=== PATIENT | female | born 1975 | race Caucasian/White ===

== ENCOUNTER 2025-01-27 09:36 | Outpatient (REF) | payer MEDICAID, SELFPAY ==
[2025-01-27 11:52] LABS: Beta-Hydroxybutyrate 0.17 mmol/L (0.02-0.27)
[2025-01-27 11:53] LABS: Anion Gap 11 (12-20); Blood Urea Nitrogen 11 mg/dL (9-16); Calcium 8.4 mg/dL (8.4-10.2); Carbon Dioxide 24 mmol/L (22-29); Chloride 108 mmol/L (96-108); Estimated Glomerular Filt Rate > 60; Glucose Random 106 mg/dL (60-115); Magnesium 1.8 mg/dL (1.6-2.6); Potassium 3.6 mmol/L (3.3-5.1); Sodium 139 mmol/L (135-145)
== END 2025-01-27 09:37 | disposition home or self-care (01) ==
LOC: HO.HHCL 09:36
PROVIDERS: Visit Provider Internal Medicine
DX: K52.9 Noninfective gastroenteritis and colitis, unspecified (principal); E11.9 Type 2 diabetes mellitus without complications
CPT/HCPCS: 36415; 80048; 82010; 83735

== ENCOUNTER 2025-06-04 09:06 | Emergency (ER) | payer MEDICAID, SELFPAY ==
--- OUTSIDE RECORDS SUMMARY | 2024-08-25 05:20 | XMS_ITS ---
Author Organization [employer] enter Address [address] [place] [phone] Care Team Providers Care Honey Blender Name Role Phone Fito Garza MD Primary Care Provider Adelfo MONTGOMERY, Maya Unavailable [phone] REASON FOR VISIT ride needed to[facility] Encounters Encounter Location Date Provider Diagnosis [facility] Medical [address] [id number] 08/25/2024 Maya Emanuel Plan Of Treatment No Information Progress Notes * LUISITOMikaelaOB:[birth year] (49 yo F)Acc No.[id number]:08/25/2024 PROGRESS NOTES Patient: Madhu INMAN Provider: Marcia Emanuel MD Resource:Transportation, [facility] :1975 A ge:48 Y S ex:Female Date:08/25/2024 Address:[address] [place] [address], [address] [id number] Pcp:Fito Garza MD Subjective: * Chief Complaints: [...] 08/25/2024 Generated for Samantha sanders/Lisette/Denise on: 1 08/04/2024 09:42 AM EST
--- OUTSIDE RECORDS SUMMARY | 2024-09-27 05:40 | XMS_ITS ---
Author Organization [employer] enter Address [address] [place] [phone] Care Team Providers Care Camera Technician Name Role Phone Fito Garza MD Primary Care Provider [phone] REASON FOR VISIT Follow-Up/Recheck- CXL by facility Encounters Encounter Location Date Provider Diagnosis [facility] Medical of [address] [id number] 09/27/2024 Fito Garza Plan Of Treatment No Information Progress Notes * LUISITOEdilbertoHunterOB:[birth year] (49 yo F)Acc No.[id number]:09/27/2024 PROGRESS NOTES Patient: Madhu INMAN Provider: Enmanuel Garza MD :1975 A ge:48 Y S ex:Female Date:09/27/2024 Address:[address] [place] [address], [address], [id number] Subjective: * Chief Complaints: * 1 . Follow-Up/Recheck- CXL by facility. * Medical History: Objective: * Vitals: * Physical Examination: Assessment: Plan: * Treatment: * Billing Information: * Visit Code: * Procedure Codes: * The named appointment provid er may or may not be the originator of this progress note, and it is not deemed complete until electronically signed by the appointment provider. Sign off status: Pending * Provider: Enmanuel Garza MD Date: 0 09/27/2024 Generated for Samantha sanders/Lisette/eTransmitting on: 1 08/04/2024 09:42 AM EST
--- OUTSIDE RECORDS SUMMARY | 2024-10-27 03:00 | XMS_ITS ---
Author Organization [employer] enter Address [address] [place] [phone] Care Team Providers Care School Health Assistant Name Role Phone Fito Garza MD Primary Care Provider REASON FOR VISIT Back Pain Encounters Encounter Location Date Provider Diagnosis [facility] Medical [place] [address] [place] [phone] 10/27/2024 Fito Garza Plan Of Treatment No Information Progress Notes * LUISITO MikaelaOB:[birth year] (49 yo F)Acc No.[id number]:10/27/2024 PROGRESS NOTES Patient: Madhu INMAN Provider: Enmanuel Garza MD :1975 A ge:48 Y S ex:Female Date:10/27/2024 Address:[address] [place] [address], [address], [id number] Subjective: * Chief Complaints: * 1 . [...] 0 10/27/2024 Generated for Samantha sanders/Lisette/eTransmitting on: 1 08/04/2024 09:42 AM EST
--- OUTSIDE RECORDS SUMMARY | 2024-12-15 03:40 | XMS_ITS ---
Author Organization [employer] enter Address [address] [place] [phone] Care Team Providers Care Artificial Stone Setter Name Role Phone Fito Garza MD Primary Care Provider [phone] REASON FOR VISIT Back Pain Encounters Encounter Location Date Provider Diagnosis [address] [id number] 12/15/2024 Fito Garza Plan Of Treatment No Information Progress Notes * LUISITOMikaelaOB:[birth year] (49 yo F)Acc No.[id number]:12/15/2024 PROGRESS NOTES Patient: Madhu INMAN Provider: Enmanuel Garza MD :1975 A ge:49 Y S ex:Female Date:12/15/2024 Address:[address] [place] [address], [address], [id number] Subjective: * Chief Complaints: * 1 . [...] 0 12/15/2024 Generated for Samantha sanders/Lisette/eTransmitting on: 08/04/2024 09:42 AM EST
--- OUTSIDE RECORDS SUMMARY | 2025-04-13 03:00 | XMS_ITS ---
Author Organization [employer] enter Address [address], [place] [phone] Care Team Providers Care Quality Control Industrial Engineer Name Role Phone Fito Garza MD Primary Care Provider REASON FOR VISIT [phone] support animal Medications Medication SIG (Take, Route, Frequency, Duration) Notes Start Date End Date Status BuPROPion (Eqv-Wellbutrin SR) 150 mg/12 hours 1 tab(s) orally 2 times a day; Duration: 30 day(s) 04/19/2024 Active HydrOXYzine Hydrochloride hydrochloride 25 mg 1 tab(s) orally 4 times a day prn anxiety; Duration: 90 days Rx Written By: Fito Garza Rx Sent By: eTri Bojorquez CphT Active metoclopramide 10 mg 1 tab(s) orally up to 4 times a day as needed for nausea/vomiting; Duration: 3 days As needed 09/13/2024 Active Rosuvastatin Calcium 10 mg 1 tab(s) orally once a day; Duration: 30 days Written rx given by provider, Rx sent by Viet Cavanaugh Active dapagliflozin 10 mg 1 tab(s) orally once a day; Duration: 30 days Written rx given by provider, Rx sent by Viet Zepeda Active famotidine 20 mg 1 tab(s) orally 2 times a day; Duration: 30 days 08/25/2024 Active benzonatate 100 mg 1 cap(s) orally 3 times a day; Duration: 5 day(s) 08/25/2024 Active Cyclobenzaprine Hydrochloride 10 mg 1 tab(s) orally 3 times a day PRN 03/14/2024 Active omeprazole 20 mg 1 cap(s) orally once a day; Duration: 90 days Written rx given by provider, Rx sent by Viet Cavanaugh Active OZEMPIC (0.25mg or 0.5mg dose) 2 mg/3 mL Inject 0.25mg subcutaneously once weekly; Duration: 28 days Written rx given by provider, Rx sent by Vinh Do CPhT 09/05/2024 Active ondansetron 4 mg 1 tab(s) orally ever y 8 hours as needed; Duration: 7 days Active Lancets Select per formulary as directed subcutaneously Once Daily. DX E11.9; Duration: 90 days Written Rx given by provider Rx sent by Vinh Do CPhT Active Diabetic Meter Select per formulary As directed for blood glucose testing Subcutaneously Once Daily. DX E11.9; Duration: 30 day(s) Written Rx given by provider Rx sent by Vinh Do CPhT Active TraZODone Hydrochloride 50 mg 1 tab(s) orally at bedtime prn insomnia; Duration: 30 days Active Lancing Device select per formulary as directed subcutaneously Once Daily DX E11.9; Duration: 30 day(s) 04/19/2024 Active Alcohol Prep Pads _ as directed topicall y Once Daily. DX E11.9; Duration: 30 day(s) 04/19/2024 Active sucralfate 1 g 1 tab(s) orally 4 times a day (before meals and at bedtime) Donna 05/20 Active fexofenadine 180 mg 1 tab(s) orally once a day Active Montelukast Sodium 10 mg 1 tab(s) orally once a day; Duration: 30 days 07/14/2024 Active Test Strips Select per formulary as directed to check blood glucose level Subcutaneously Once daily DX E11.9; Duration: 30 day(s) 04/19/2024 Active Encounters Encounter Location Date Provider Diagnosis [address] [id number] 04/13/2025 Fito Garza Plan Of Treatment No Information Progress Notes * Mikaela JORGEOB:[birth year] (49 yo F)Acc No.[id number]:04/13/2025 PROGRESS NOTES Patient: Madhu INMAN Provider: Enmanuel Garza MD :1975 A ge:49 Y S ex:Female Date:04/13/2025 Address:[address] [place] [address], [address], [place] Subjective: * Chief Complaints: * 1 . [phone]- letter support animal. * HPI: T elemedicine: Phone Visit Consent V erbal consent obtained from patient/guardian: Y es. P roalonso's visit location : o n site. [facility]. S ervice Time: Start Time : _. E nd Time : _. D uration (in minutes) : _. * Medical History: * Medications: T aking Montelukast Sodium 10 mg tablet 1 tab(s) orally once a day , Taking fexofenadine 180 mg tablet 1 tab(s) orally once a day , Taking sucralfate 1 g tablet 1 tab(s) orally 4 times a day (before meals and at bedtime) , Notes to Pharmacist: Donna 05/20, Taking Alcohol Prep Pads _ swab as directed topically Once Daily. DX E11.9 , Taking Test Strips Select per formulary _ as directed to check blood glucose level Subcutaneously Once daily DX E11.9 , Taking Lancing Device select per formulary _ as directed subcutaneously Once Daily DX E11.9 , Taking TraZODone Hydrochloride 50 mg tablet 1 tab(s) orally at bedtime prn insomnia , Taking Diabetic Meter Select per formulary Glucometer As directed for blood glucose testing Subcutaneously Once Daily. DX E11.9 , Notes to Pharmacist: Written Rx given by provider Rx sent by Vinh Do CPhT, Taking Lancets Select per formulary _ as directed subcutaneously Once Daily. DX E11.9 , Notes to Pharmacist: Written Rx given by provider Rx sent by Vinh Do CPhT, Taking ondansetron 4 mg tablet 1 tab(s) orally every 8 hours as needed , Taking omeprazole 20 mg delayed release capsule 1 cap(s) orally once a day , Notes to Pharmacist: Written rx given by provider, Rx sent by Viet Cavanaugh, Taking Cyclobenzaprine Hydrochloride 10 mg tablet 1 tab(s) orally 3 times a day PRN , Taking benzonatate 100 mg capsule 1 cap(s) orally 3 times a day , Taking famotidine 20 mg tablet 1 tab(s) orally 2 times a day , Taking OZEMPIC (0.25mg or 0.5mg dose) 2 mg/3 mL solution Inject 0.25mg subcutaneously once weekly , Notes to Pharmacist: Written rx given by provider, Rx sent by Vinh Do CPhT, Taking dapagliflozin 10 mg tablet 1 tab(s) orally once a day , Notes to Pharmacist: Written rx given by provider, Rx sent by Viet Zepeda, Taking Rosuvastatin Calcium 10 mg tablet 1 tab(s) orally once a day , Notes to Pharmacist: Written rx given by provider, Rx sent by Viet Cavanaugh, Taking metoclopramide 10 mg tablet 1 tab(s) orally up to 4 times a day as needed for nausea/vomiting As needed, Taking HydrOXYzine Hydrochloride hydrochloride 25 mg tablet 1 tab(s) orally 4 times a day prn anxiety , Notes to Pharmacist: Rx Written By: Fito Garza Rx Sent By: Teri Bojorquez CphT, Taking BuPROPion (Eqv-Wellbutrin SR) 150 mg/12 hours tablet, extended release 1 tab(s) orally 2 times a day Objective: * Vitals: * Physical Examination: Assessment: Plan: * Treatment: * Procedure Codes: P HPRO Phone Visit-PROVIDER * Billing Information: * Visit Code: * Procedure Codes: PHPRO Phone Visit-PROVIDER. * The named appointment provid er may or may not be the originator of this progress note, and it is not deemed complete until electronically signed by the appointment provider. Sign off status: Pending * Provider: Enmanuel Garza MD Date: 0 04/13/2025 Generated for Samantha sanders/Lisette/Denise on: 08/04/2024 09:42 AM EST History and Physical Notes * HPI (History of Present Illness) Category Sub-Category Detail Notes Category Not es Service Time Start Time : _ End Time : _ Duration (in minutes) : _ Telemedicine Phone Visit Consent Verbal conse nt obtained from patient/guardian:: Yes Provider's visit location :: on site Patient's visit location :: off site
[2025-06-04 09:11] VITALS: BP 127/67; PULSE 75; RESP 16; TEMP 36.7; O2SAT 96; BMI 31.6
--- OUTSIDE RECORDS SUMMARY | 2025-06-04 09:42 | XMS_ITS | Clinical Summary ---
Author Organization [employer] Address [address] [facility] [address] [place] [address] Care Team Providers Care Bilingual Call Center Representative Name Role Phone Unavailable Primary Care Provider Unavailabl e Allergies Active Allergy Reactions Criticality Noted Date Comments Penicillin G Hives High 01/25/2025 Medications * This document contains information received from the source organization and may not represent a complete record from that organization. Ozempic, 0.25 or 0.5 MG/DOSE, 2 MG/3ML solution pen-injector Inject 0.25 mg under the skin 1 (one) time per week. 11/21/2024 Active hydrOXYzine HCl (Atarax) 25 MG tablet Take 25 mg by mouth Once per day. Active Active Problems Problem Noted Date Diagnosed Date Gastroenteritis 01/25/2025 Assessment & Plan (01/25/2025 7:44 PM EDT): Probably viral, getting worse by use of Ozempic yesterday. Patient is currently hemodynamically stable, her mucosas are moist and does not show any other signs of dehydration or orthostatism. Start Zofran 3 times daily AC meals and I advised to start p.o. hydration (water, Pedialyte, Gatorade, Crystal light, chicken broth or herbal teas) for the next 4 to 5 hours then advance to BRAT diet as tolerated. Continue Zofran tomorrow morning, hydration and above diet, advance to soft diet (information given to patient) as tolerated. Check BMP and ketones tomorrow after hydration, should go to ED tonight if she continues with weakness, severe headache, uncontrolled vomiting or episode of hypoglycemia. Continue Ozempic next week only if she has been without symptoms for at least 3 days and follow-up with new PCP Type 2 diabetes mellitus wit hout complication, without long-term current use of insulin 01/25/2025 Assessment & Plan (01/25/2025 7:41 PM EDT): A1c is at goal, needs to follow-up with new PCP. Should be without symptoms for at least 3 days in order to continue Ozempic next week, otherwise she will hold off until the following week. Body aches 01/25/2025 Recurrent major depressive disorder, in partial remission 01/25/2025 Assessment & Plan (01/25/2025 7:47 PM EDT): On hydroxyzine in the morning only. She agreed to be referred to behavioral health to continue follow-up by counselor. Please follow-up with your PCP Patient feels safe at home and is able to reach out for safety Encounters Date Type Department Care Team Description 04/05/2025 Population Health Risk Score [facility] () Department [address] [place] [phone] Provider, Population Health Generic 03/21/2025 Telephone [facility] [address] [place] [address] Yandy Joseph MD No Show 03/20/2025 Telephone [facility] [address], [place] [phone] Yandy Joseph MD chart prep 03/14/2025 Patient Outreach [facility] [address] [place] [address] Yandy Joseph MD Pre-visit Planning (AKOH unable to reach, Disconnected) from Last 3 Months Social History Tobacco Use Types Packs/Day Years Used Date Smoking Tobacco: Never Assessed Depression Answer Date Recorded Patient Health Questionnaire-9 Score 4 01/25/2025 Patient Health Questionnaire-9 Score 4 01/25/2025 Last PHQ-9: Questionnaire Data Not on file 0 01/25/2025 Depression Answer Date Recorded Patient Health Questionnaire-2 Score 1 01/25/2025 Comments Unknown Sex and Gender Information Value Date Recorded Sex Assigned at Female 01/25/2025 5:15 PM EDT Legal Sex Female 11:33 AM EDT Gender Identity Female 01/25/2025 5:15 PM EDT Sexual Orientation Straight 01/25/2025 5: 15 PM EDT Last Filed Vital Signs Vital Sign Reading Time Taken Comments Blood Pressure 131/86 01/25/2025 6:24 PM EDT Pulse 76 01/25/2025 6:24 PM EDT Temperature 36.7 C (98.1 F) 01/25/2025 6:24 PM EDT Respiratory Rate 16 01/25/2025 6:24 PM EDT Oxygen Saturation 96% 01/25/2025 6:24 PM EDT Inhaled Oxygen Concentration - - Weight 90.4 kg (199 lb 3.2 oz) 01/25/2025 6:24 P M EDT Height 167.6 cm (5' 6 ) 01/25/2025 6:24 PM EDT Body Mass Index 32.15 01/25/2025 6:24 PM EDT Plan of Treatment Health Maintenance Due Date Last Done Comments CT Colonography 1975 Colonoscopy 1975 Colorectal Cancer Screening 1975 FIT DNA/Cologuard 1975 FIT 1975 FOBT 1975 HIV Screening 1975 Lipid Panel 1975 SDOH Screening 1975 Sigmoidoscopy 1975 Disability Screening 1975 Diabetes: Foot Exam 1986 Eye Exam 1986 Alcohol/Substance Use Screening 1988 Tobacco Screening 1988 Family Planning (PISQ) 12/11/1991 Hepatitis C Screening 1994 DTaP/Tdap/Td Vaccines (1 - Tdap) 12/11/1995 Diabetes: Urine Protein Screening 12/11/1995 Hepatitis B Vaccines (1 of 3 - 19+ 3-dose series) 12/11/1995 Pneumococcal Vaccine: Pediatrics (0 to 5 Years) and At-Risk Patients (6 to 49) Years (1 of 2 - PCV) 12/11/1995 Pap Smear 1997 Cervical Cancer Screening 2006 HPV/Cotest 2006 Mammogram 2016 COVID-19 Vaccine (1 - 2023-2 5 season) 2025 Influenza Vaccine (#1) 2025 Diabetes: Hemoglobin A1C 07/27/2025 01/25/2025 Depression Screening 01/25/2026 01/25/2025, 01/25/2025 Zoster Vaccines (1 of 2) 2026 RSV Patients and Patients Aged 60 years or older (1 - 1-dose 75+ series) 12/11/2051 HIB Vaccines Aged Out No longer eligi ble based on patient's age to complete this topic HPV Vaccines Aged Out No longer eligi ble based on patient's age to complete this topic Hepatitis A Vaccines Aged Out No long er eligible based on patient's age to complete this topic IPV Vaccines Aged Out No longer eligi ble based on patient's age to complete this topic Meningococcal B Vaccine Aged Out No l onger eligible based on patient's age to complete this topic Meningococcal Vaccine Aged Out No roula sandy eligible based on patient's age to complete this topic RSV under 20 months Aged Out No longe r eligible based on patient's age to complete this topic Rotavirus Vaccines Aged Out No longer eligible based on patient's age to complete this topic Procedures Procedure Name Priority Date/Time Associated Diagnosis Comments POCT GLYCATED HEMOGLOBIN, TOTAL Routine 01/25/2025 6:47 PM EDT Type 2 diabetes mellitus without complication, without long-term current use of insulin ([facility]) from Last 3 Months or Most Recently Relevant to Health Maintenance Results * (ABNORMAL) POCT HGB A1C (01/25/2025 6:47 PM EDT) Hemoglobin A1C 6.6(A) 4.0 - 6.0 % QC Media Lot # [id number] Lot# Expiration Date Blood 01/25/2025 6:47 PM EDT Yandy Joseph MD POINT OF CARE TEST ENTER /EDIT ORDERABLES Final Result from Last 3 Months or Most Recently Relevant to Health Maintenance Insurance [facility] C3
--- OUTSIDE RECORDS SUMMARY | 2025-06-04 09:43 | XMS_ITS | Patient Health Record ---
Author Organization [employer] Address [address], [place] [address] Care Team Providers Care Welding Pantograph Operator Name Role Phone Fito Garza MD Primary Care Provider [phone] Adelfo MONTGOMERY, Maya Unavailable [phone] Christiano DEBUBBLIZER-C, Hemalatha Unavailable [phone] Carin SUPERVISOR [employer]-C, Avani Unavailable Chucky SUPERVISOR [employer]-C, Hali Unavailable [phone] Sierra Sanders APRN Unavailable Elle Tinsley DO Unavailable [phone] Krishan Mckeon MD Unavailable [phone] Allergies Allergen (clinical drug ingredient) Drug/Non Drug Allergy documented on EMR Reaction Allergy Type Onset Date Status Shellfish Hives Drug Allergy Active cephalexin cephalexin Anaphylaxis Drug Allergy Act krystle amoxicillin amoxicillin hives Drug Allergy Act krystle Results Component Value Reference Range Notes HbA1C (IH) Reviewed date:06/21/2024 05:12:02 PM Interpretation:6.5 Performing Lab: Notes/Report: 6.5 HEMOGLOBIN A1C 6.5 (4.3 - 5.6) % Glucose (IH) Reviewed date:06/21/2024 05:12:22 PM Interpretation:137 Performing Lab: Notes/Report: 137 GLU 137 67 - 99 mg/dl Strep A Rapid (IH) * Reviewed date:06/21/2024 05:11:49 PM Interpretation:Positive Performing Lab: Notes/Report: Positive RAPID STREP Positive (Negative) - COVID-19 / Influenza A + B R apid BD Veritor (IH) (Z20.828) Reviewed date:06/21/2024 05:12:13 PM Interpretation:Negative Performing Lab: Notes/Report: Negative SARS-CoV-2 Ag neg (Negative) - Influenza A neg (Negative) - Influenza B neg (Negative) - HEPATITIS C ANTIBODY Reviewed date:08/17/2024 05:10:37 AM Interpretation: Performing Lab:[facility] [address] [facility] [id number] Notes/Report: Hepatitis C Virus Antibody Non Reac Non Reactive Urine Gonorrhoea Probe (Life span) Reviewed date:08/17/2024 03:27:46 PM Interpretation: Performing Lab:[facility] [address] [facility] [id number] Notes/Report: Urine Gonorrhoeae Probe negative Urine Juni Probe performed by Footnote Test Performed by: [facility] [address] [address] LIPID PANEL (aka Cholesterol Fractionation) Reviewed date:08/17/2024 05:10:37 AM Interpretation: Performing Lab:[facility] [address] [facility] [address] Notes/Report: Hours Fasting Unknown Cholesterol Level 225 110-199 MG/DL TOTAL CHOLESTEROL Desirable: <200 mg/dL Borderline high: 200-239 mg/dL High: > or =240 mg/dL Triglycerides 224 37-141 MG/DL TRIGLYCERIDES Normal: <150 mg/dL Borderline high: 150-199 mg/dL High: 200-499 mg/dL Very high: > or =500 mg/dL HDL 51 50-70 MG/DL LDL 129 70-129 MG/DL LDL CHOLESTEROL Desirable (ASCVD or Diabetes): <70 mg/dL Desirable: <100 mg/dL Borderline: 130-159 mg/dL High: 160-189 mg/dL Very high: > or =190 mg/dL Non-HDL Cholesterol 174 70-159 MG/DL NON-HDL CHOLESTEROL Desirable (ASCVD or Diabetes): <100 mg/dL Desirable: <130 mg/dL Borderline: 160-189 mg/dL High: 190-219 Very high: > or =220 mg/dL Chol HDL Ratio 4.4 2.0-5.0 Urine Chlamydia trac Probe Reviewed date:08/17/2024 03:27:46 PM Interpretation: Performing Lab:[facility] [address] [facility] / Notes/Report: Urine Chlamydia Probe negative Urine Chlamydia Probe performed by Footnote Test Performed by: [facility] [address] [address] Comprehensive Metabolic Pane l Reviewed date:09/14/2024 08:36:02 AM Interpretation: Performing Lab:[facility] [address] [facility] / Notes/Report: Glucose 116 67-99 MG/DL BUN 8 6-24 MG/DL Creatinine 0.76 0.44-1.03 MG/DL eGFR 97 >90 mL/min/1.73m exp2 Calcul ated using the CKD-epi 2020 race-free equation. BUN Creatinine Ratio 11 NA 142 135-145 MEQ/L K Level 3.4 3.6-5.1 MEQ/L Chloride 108 98-110 MEQ/L CO2 26 20-29 MEQ/L Anion Gap 8 3-13 Albumin 4.3 3.4-5.1 G/DL Alkaline Phosphatase 84 39-117 IU/L ALT 9 7-49 IU/L AST 10 12-52 IU/L Bili Total 0.3 0.1-1.2 MG/DL CA 9.5 8.4-10.2 MG/DL Total Protein 7.7 6.1-8.3 G/DL HIV Ab/Ag Combo Reviewed date:08/17/2024 05:10:37 AM Interpretation: Performing Lab:[facility] [employer] [address] [facility] / Notes/Report: HIV Ab/Ag Combo Non Reac Treponema pallidum IgG and I gM Antibody Reviewed date:08/17/2024 05:10:37 AM Interpretation: Performing Lab:[facility] [employer] [address] [facility] / Notes/Report: Treponema pallidum IgG IgM Antibody <0.2 0.0-0.8 AI Treponema IgG IgM Comnt Footnote Reference Range Antibody Index (AI) Negative: < or = 0.8 No Syphilis IgG/IgM antibodies detected. Patient is presumed not to have had syphilis infection. Equivocal: 0.9 - 1.0 Equivocal result: Reflex to RPR test Positive: = or > 1.1 Reactive: Reflex to RPR test Allergens, Mold Profile Reviewed date:08/18/2024 07:52:39 AM Interpretation: Performing Lab:[facility] [address] [facility] / Notes/Report: Allergen, A. alternata IgE <0.10 <=0.34 kU/L Allergen, A. fumigatus IgE <0.10 <=0.34 kU/L Allergen, C. albicans <0.10 <=0.34 kU/L Allergen, Hormodendrum <0.10 <=0.34 kU/L Allergen, P. notatum IgE <0.10 <=0.34 kU/L RAST, Immunocap Score See Note REFERENCE INTERVAL: Allergen, Interpretation Less than 0.10 kU/L......Class 0.....No significant level detected 0.10-0.34 kU/L...........Class 0/1...Clinical relevance undetermined 0.35-0.70 kU/L...........Class 1.....Low 0.71-3.50 kU/L...........Class 2.....Moderate 3.51-17.50 kU/L..........Class 3.....High 17.51-50.00 kU/L.........Class 4.....Very High 50.01-100.00 kU/L........Class 5.....Very High Greater than 100.00kU/L..Class 6.....Very High Allergen results of 0.10-0.34 kU/L are intended for specialist use as the clinical relevance is undetermined. Even though increasing ranges are reflective of increasing concentrations of allergen-specific IgE, these concentrations may not correlate with the degree of clinical response or skin testing results when challenged with a specific allergen. The correlation of allergy laboratory results with clinical history and in vivo reactivity to specific allergens is essential. A negative test may not rule out clinical allergy or even anaphylaxis. Performed By: [facility] [address] [place] [address] Tire Technician: Mando Rausch MD, PhD CLIA Number: [id number] Allergen, Food, Adult Profil e Reviewed date:08/18/2024 07:52:39 AM Interpretation: Performing Lab:[facility] [address] [facility]. [place] / Notes/Report: Allergen,Egg White <0.10 <=0.34 kU/L Allergen, Milk (Cow's) <0.10 <=0.34 kU/L Allergen, Food, Wheat IgE <0.10 <=0.34 kU/L Allergen, Food, [place]ley IgE <0.10 <=0.34 kU/L Allergen,Peanut <0.10 <=0.34 kU/L Allergen, Soybean <0.10 <=0.34 kU/L Allergen, Food, Shrimp IgE <0.10 <=0.34 kU/L Allergen, [place] IgE <0.10 <=0.34 kU/L Allergen, Food, Clam IgE <0.10 <=0.34 kU/L Allergen, Food, Codfish IgE <0.10 <=0.34 kU/L Allergen, Food, Scallop IgE <0.10 <=0.34 kU/L Immunoglobulin E 66 <=214 kU/L REFERENCE INTERVAL: Immunoglobulin E, Serum Access complete set of age- and/or gender-specific reference intervals for this test in the [facility] Test Directory ([email or web address]). Comprehensive Metabolic Pane l Reviewed date:08/17/2024 05:10:37 AM Interpretation: Performing Lab:[facility] [address] [facility] Notes/Report: Glucose 213 67-99 MG/DL BUN 7 6-24 MG/DL Creatinine 0.66 0.44-1.03 MG/DL eGFR 108 >90 mL/min/1.73m exp2 Calcul ated using the CKD-epi 2020 race-free equation. BUN Creatinine Ratio 11 NA 136 135-145 MEQ/L K Level 4.2 3.6-5.1 MEQ/L Chloride 104 98-110 MEQ/L CO2 20 20-29 MEQ/L Anion Gap 12 3-13 Albumin 4.0 3.4-5.1 G/DL Alkaline Phosphatase 103 39-117 IU/L ALT 24 7-49 IU/L AST 14 12-52 IU/L Bili Total 0.4 0.1-1.2 MG/DL CA 9.2 8.4-10.2 MG/DL Total Protein 7.9 6.1-8.3 G/DL A1C Reviewed date:08/17/2024 05:10:37 AM Interpretation: Performing Lab:[facility] [address] 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 Having recurrence of urticaria Diagnosis 1 Urticaria (L50.9) Referral Organization [facility] Referring Provider First Name Elle Referring Provider Last Name Laureano Referring Provider Speciality Family Pra ctice Referred Provider Laron Obregon ([facility]) Referred Provider Specialty Allergy/Immu nology General Notes Makayla Carney 07/03 10:56:28 AM > Attached note, Dr. Hall's last note. Faxed. Portal message to pt with info. Explained in message that Dr. Warren no longer takes pt's ins. Clinical Notes Makayla Carney 07/03 10:56:11 AM > Dr. Hall no longer accepts patients insurance. Referral Priority Routine Medications Medication SIG (Take, Route, Frequency, Duration) Notes Start Date End Date Status Alcohol Prep Pads _ as directed topicall y Once Daily. DX E11.9; Duration: 30 day(s) 04/19/2024 Active sucralfate 1 g 1 tab(s) orally 4 times a day (before meals and at bedtime) Donna 05/20 Active famotidine 20 mg 1 tab(s) orally 2 times a day; Duration: 30 days 08/25/2024 Active fexofenadine 180 mg 1 tab(s) orally once a day Active benzonatate 100 mg 1 cap(s) orally 3 times a day; Duration: 5 day(s) 08/25/2024 Active Montelukast Sodium 10 mg 1 tab(s) orally once a day; Duration: 30 days 07/14/2024 Active Cyclobenzaprine Hydrochloride 10 mg 1 tab(s) orally 3 times a day PRN 03/14/2024 Active omeprazole 20 mg 1 cap(s) orally once a day; Duration: 90 days Written rx given by provider, Rx sent by Viet Cavanaugh Active ondansetron 4 mg 1 tab(s) orally ever y 8 hours as needed; Duration: 7 days Active Lancets Select per formulary as directed subcutaneously Once Daily. DX E11.9; Duration: 90 days Written Rx given by provider Rx sent by Vinh Do CPhT Active BuPROPion (Eqv-Wellbutrin SR) 150 mg/12 hours 1 tab(s) orally 2 times a day; Duration: 30 day(s) 04/19/2024 Active Diabetic Meter Select per formulary As directed for blood glucose testing Subcutaneously Once Daily. DX E11.9; Duration: 30 day(s) Written Rx given by provider Rx sent by Vinh Do CPhT Active HydrOXYzine Hydrochloride hydrochloride 25 mg 1 tab(s) orally 4 times a day prn anxiety; Duration: 90 days Rx Written By: Fito Garza Rx Sent By: Teri Bojorquez CphT Active TraZODone Hydrochloride 50 mg 1 tab(s) orally at bedtime prn insomnia; Duration: 30 days Active metoclopramide 10 mg 1 tab(s) orally up to 4 times a day as needed for nausea/vomiting; Duration: 3 days As needed 09/13/2024 Active Lancing Device select per formulary as directed subcutaneously Once Daily DX E11.9; Duration: 30 day(s) 04/19/2024 Active Rosuvastatin Calcium 10 mg 1 tab(s) orally once a day; Duration: 30 days Written rx given by provider, Rx sent by Viet Cavanaugh Active Test Strips Select per formulary as directed to check blood glucose level Subcutaneously Once daily DX E11.9; Duration: 30 day(s) 04/19/2024 Active dapagliflozin 10 mg 1 tab(s) orally once a day; Duration: 30 days Written rx given by provider, Rx sent by Viet Zepeda Active OZEMPIC (0.25mg or 0.5mg dose) 2 mg/3 mL Inject 0.25mg subcutaneously once weekly; Duration: 28 days Written rx given by provider, Rx sent by Vinh Do CPhT 09/05/2024 Active Immunizations Vaccine Route Administration Date Status Comme nts Tdap (19y+) (Adacel) IM Intramuscular 07/26/2015 Administe red Influenza (19y+) (Fluarix) IM Intramuscular 07/26/2015 Adm inistered Pneumococcal (PPV23) Adult IM Intramuscular 12/20/2015 Adm inistered Influenza (19y+) (Fluzone) IM Intramuscular 09/19/2016 Adm inistered Influenza (19y+) (Fluarix) IM Intramuscular 05/21/2017 Adm inistered Influenza (19y+) (Fluzone) IM Intramuscular 09/10/2018 Adm inistered COVID-19 (Moderna Monoval.) #1 (>11y) IM Intramuscular 10/18/2020 Administered COVID-19 (Moderna Monoval.) #2 (>11y) IM Intramuscular 11/22/2020 Administered Influenza (19y+) (Flucelvax) IM Intramuscular 08/16/2021 Administered Influenza (19y+) (Fluzone) IM Intramuscular 04/19/2024 Adm inistered Social History Tobacco Use: Social History Observation Description Date Details (start date - stop date) Current Smoker NA - NA If using tobacco: Question Answer Notes Advised to quit? 01/06/2023 Tobacco Control (Standard) Question Answer Notes Tobacco use: Current smoker How many cigarettes a day do you smoke? 6-10 How soon after you wake up d o you smoke your first cigarette? 6-30 minutes Are you interested in quitting? Thinking about q uitting AUDIT-C (Standard) Question Answer Notes Did you have a drink containing alcohol in the p ast year? No Points 0 Interpretation Negative Section Notes: - - - - - - - - - * * * * * + 1/2 PPD (tobacco) - patient is pre-contemplative No ETOH No recreational drug use + 1/2 PPD (tobacco) - patient is pre-contemplative No ETOH No recreational drug use + 1/2 PPD (tobacco) - patient is pre-contemplative No ETOH No recreational drug use + 1/2 PPD (tobacco) - patient is pre-contemplative No ETOH No recreational drug use + 1/2 PPD (tobacco) - patient is pre-contemplative No ETOH No recreational drug use + 1/2 PPD (tobacco) - patient is pre-contemplative No ETOH No recreational drug use + 1/2 PPD (tobacco) - patient is pre-contemplative No ETOH No recreational drug use + 1/2 PPD (tobacco) - patient is pre-contemplative No ETOH No recreational drug use + 1/2 PPD (tobacco) - patient is pre-contemplative No ETOH No recreational drug use + 1/2 PPD (tobacco) - patient is pre-contemplative No ETOH No recreational drug use + 1/2 PPD (tobacco) - patient is pre-contemplative No ETOH No recreational drug use Problems Problem Type SNOMED Code ICD Code Onset Dates Problem Status W/U Status Risk Notes Problem Tobacco dependence (14880400) Tobacco dependence (F17.200) Active confirmed Problem Diabetes mellitus (66811602) Diabetes mellitus (E11.9) Active confirmed Problem No diagnosis (024342002) Enhanced Care Level 5 (CareLevel) Active confirmed Problem Insomnia disorder related to another mental disorder (26679061) Insomnia due to other mental disorder (F51.05) Active confirmed Problem Sciatica (28655945) Lumbago with sciatica, left side (M54.42) Active confirmed Problem Sciatica (10379833) Lumbago with sciatica, right side (M54.41) Active confirmed Problem Left side sciatica (632614268825776) Sciatica, left side (M54.32) Active confirmed Problem Right side sciatica (698106827695743) Sciatica, right side (M54.31) Active confirmed Problem Hyperlipidemia (45481674) Hyperlipidemia , unspecified (E78.5) Active confirmed Problem Chronic pain (55459466) Other chronic pain (G89.29) Active confirmed Problem Leukemoid reaction (36946864) Leukemoid reaction (D72.823) Active confirmed Problem Vitamin D deficiency (87520845) Vitamin D deficiency (E55.9) Active confirmed Problem Anxiety (84812028) Anxiety (F41.9) Active confirmed Problem Kidney stone (33567552) Kidney stone (N20.0) Active confirmed Problem Obesity (058345015) Obesity (E66.9) Active confirmed Problem Recurrent major depression (22798347) Major depressive disorder, recurrent episode with anxious distress (F33.9) Active confirmed Problem Moderate recurrent major depression (58188547) Moderate episode of recurrent major depressive disorder (F33.1) Active confirmed Problem Type II diabetes mellitus without complication (133525275) Type 2 diabetes mellitus without complication, without long-term current use of insulin (E11.9) Active confirmed Problem Gastroesophageal reflux disease with esophagitis (disorder) (151101587) Gastro-esophag eal reflux disease with esophagitis, without bleeding (K21.00) Active confirmed Vital Signs Temperature 98.3 degrees Fahrenheit 06/21/2024 Oximetry 100 % 10/05/2024 Blood pressure diastolic 82 mm Hg 10/05/2024 Height 66 in 10/05/2024 Blood pressure systolic 126 mm Hg 10/05/2024 Weight 205 lbs 10/05/2024 BMI 33.08 kg/m2 10/05/2024 Encounters Encounter Location Date Provider Diagnosis [address] [id number] 06/21/2024 Hemalatha Alvarado Flu-like symptoms R68.89 ; Diabetes mellitus E11.9 and Strep pharyngitis J02.[address] [id number] 07/05/2024 Fito Garza Anxiety F41.[address] [id number] 07/14/2024 Elle Tinsley Urticaria L50.[address] [id number] 08/16/2024 Fito Garza Gastro-esophageal reflux disease with esophagitis, without bleeding K21.00 ; Tobacco dependence F17.200 ; Hyperlipidemia, unspecified E78.5 ; Diabetes mellitus E11.9 ; Major depressive disorder, recurrent episode with anxious distress F33.9 ; Screening examination for STI Z11.3 ; Urticaria L50.9 and Screening mammogram for breast cancer Z12.31 [facility] [address], [place] [id number] 08/25/2024 Fito Garza Cough present for greater than 3 weeks R05.8 ; Urticaria L50.9 and Type 2 diabetes mellitus without complication, without long-term current use of insulin E11.9 [facility] [address], [place] [id number] 09/13/2024 Avani Del Rosario Pneumonia of right lower lobe due to infectious organism J18.9 and Nausea and vomiting, unspecified vomiting type R11.2 [facility] [address], [place] [id number] 10/05/2024 Sierra leeleenilesBerube Dizziness R42 ; Hives L50.9 and Nausea R11.0 [facility] [address], [place] [id number] 06/21/2024 Fito Garza [address], [place] [id number] 06/22/2024 Fito Garza [facility] [address], [place] [id number] 07/04/2024 Fito Garza [facility] [address], [place] [id number] 07/13/2024 Fito Garza [facility] [address], [place] [id number] 07/13/2024 Fito Garza [facility] [address], [place] [id number] 07/13/2024 Fito Garza [facility] [address], [place] [id number] 08/04/2024 Fito Garza [facility] [address], [place] [id number] 08/11/2024 Fito Garza [facility] [address], [place] [id number] 08/15/2024 Fito Garza [facility] [address], [place] [id number] 08/17/2024 Fito Garza [facility] [address], [place] [id number] 08/17/2024 Fito Garza [facility] [address], [place] [id number] 08/17/2024 Fito Garza [facility] [place] [address] [place], [place] [id number] 08/19/2024 Fito Garza [facility] [place] [address] [place], [place] [id number] 08/27/2024 Fito Garza [facility] [address] [place], [place] [id number] 09/05/2024 Fito Garza [facility] [place] [address] [place], [place] [id number] 09/07/2024 Fito Garza [facility] [address] [place], [place] [id number] 09/23/2024 Fito Garza Nausea and vomiting, unspecified vomiting type R11.2 and Anxiety F41.9 [facility] [address] [place], [place] [id number] 10/03/2024 Fito Garza [facility] [place] [address] [place], [place] [id number] 10/22/2024 Fito Garza Nausea and vomiting, unspecified vomiting type R11.2 [facility] [address] [place], [place] [id number] 11/09/2024 Fito Garza Anxiety F41.9 [facility] [address] [place], [place] [id number] 11/16/2024 Fito Garza [facility] [place] [address] [place], [place] [id number] 11/18/2024 Fito Garza [facility] [place] [address] [place], [place] [id number] 11/18/2024 Fito Garza [facility] [place] [address] [place], [place] [id number] 01/12/2025 Fito Garza Nausea and vomiting, unspecified vomiting type R11.2 [facility] [address] [place], [place] [id number] 03/07/2025 Fito Garza [facility] [place] [address] [place], [place] [id number] 03/16/2025 Fito Garza [facility] [address] [place], [place] [id number] 03/28/2025 Fito Garza [facility] [place] [address] [place], [place] [id number] 03/29/2025 Fito Garza [facility] [place] [address] [place], [place] [id number] 04/07/2025 Fito Garza [address] [id number] 04/13/2025 Fito Garza Assessments Encounter Date Diagnosis (ICD Code) Assessment Notes Treatment Notes Treatment Clinical Notes Section Notes 06/21/2024 Diabetes mellitus (ICD-10 - E11.9) Asthenia, fatigue, and nausea. - Symptoms could be due to a variety of causes, including influenza-like illness, glycemic levels, or other underlying conditions. - Conduct a nasopharyngeal swab for SARS-CoV-2 and influenza. Monitor glycemic levels. Consider need for additional Zofran for nausea and vomiting. Sore throat - Patient reports intermittent sore throat, test for strep. - Suggested warm tea and honey or cough drops to soothe throat. Hyperglycemia. - Glycemic level measured at 137 mg/dL during visit, but patient reports higher readings at home. - Monitor glycemic levels. Continue metformin. Consider need for additional medication if glycemic levels remain high. 06/21/2024 Flu-like symptoms (ICD-10 - R68.89) Asthenia, fatigue, and nausea. - Symptoms could be due to a variety of causes, including influenza-like illness, glycemic levels, or other underlying conditions. - Conduct a nasopharyngeal swab for SARS-CoV-2 and influenza. Monitor glycemic levels. Consider need for additional Zofran for nausea and vomiting. Sore throat - Patient reports intermittent sore throat, test for strep. - Suggested warm tea and honey or cough drops to soothe throat. Hyperglycemia. - Glycemic level measured at 137 mg/dL during visit, but patient reports higher readings at home. - Monitor glycemic levels. Continue metformin. Consider need for additional medication if glycemic levels remain high. 07/05/2024 Anxiety (ICD-10 - F41.9) The patient has considerable anxiety - the patient states she is taking escitalopram and buproprion; will conitnue on this Stop Trazodone Will try Hydroxyzine for patient - side effects counseled Will check in again in 2 weeks 07/14/2024 Urticaria (ICD-10 - L50.9) Recurrent urticaria yesterday that has resolved with benadryl and prednisone as directed by urgent care. Pt had initial urticaria 2016 and saw allergy then and in 2020. Has not seen since. Not having respiratory sx. Rash resloved, but photos pt provided c/w with widespread urticaria. -Complete prednisone tx -Continue with cetirizine 10 mg daily -Initiated Singulair 10 mg daily -Referred back to [facility] -Pt scheduled f/u w derm 07/18/24 during appt. -Reviewed ED precautions with emphasis on immediate presentation for any respiratory sx/difficulty swallowing 08/16/2024 Tobacco dependence (ICD-10 - F17.200) Smoking cessatoin counseled 08/16/2024 Gastro-esophag eal reflux disease with esophagitis, without bleeding (ICD-10 - K21.00) Stable; continue on sucralfate and Omeprazole 08/25/2024 Cough present for greater than 3 weeks (ICD-10 - R05.8) Patient with a recurrent cough; lungs clear (? if urticaria related to viral infection) Will try Tessalon perles If worsening, patient to let me know 09/13/2024 Pneumonia of right lower lobe due to infectious organism (ICD-10 - J18.9) Pt currently on doxycycline for PNA of R lung. Based on severity and abx allergies, she is on the appropriate regimen. - Pt reports her breathing has improved and she knows to complete all abx. - Lung sounds clear today and remains afebrile. No indication to adust coverage. - Has albuterol at home, discussed use. - Advised to call in 1 week of no change insymptoms General Weakness and Nausea - - Persistent general weakness and nausea, with difficulty keeping food down. Previous history of similar symptoms leading to hospitalization for dehydration and low potassium and magnesium levels. - Blood work to be conducted to assess current levels. Increase fluid intake. 09/13/2024 Nausea and vomiting, unspecified vomiting type (ICD-10 - R11.2) Take medication as directed. Stop zofran while using metoclopramid e. Discussed avoiding triggers, and remedies such as aaliyah to decrease symptoms. Patient instructed to drink plenty of fluids , start slow by eating ice chips, popsiciles, sipping on mildly flavored water. Advance diet to clear liquids such as broth, teas, clear soups. Adanvce as tolerated. Monitor for signs of dehydration such as dizziness/wea kness, dry mucous membranes, increasing heart rate, decreasing urine output, poor skin turgor, or not being able to tolerate po fluids. Instructed to go to ED for any signs of dehydration for possible IV fluids. Patient verbalized understanding . General Weakness and Nausea - - Persistent general weakness and nausea, with difficulty keeping food down. Previous history of similar symptoms leading to hospitalization for dehydration and low potassium and magnesium levels. - Blood work to be conducted to assess current levels. Increase fluid intake. 10/05/2024 Hives (ICD-10 - L50.9) - Symptoms have overall improved since the hospital visit. Blood work and tests for flu, COVID, and RSV were negative in the ED - Continue monitoring symptoms. Ensure adequate hydration and nutrition. - Take Tylenol for pain relief. Take a warm bath for comfort. - No hives today. She does have a rash on her L arm that looks to me like she was scratching or rubbing the skin, potentially in her sleep as she does not recall - Follow-up with PCP next week. 10/05/2024 Dizziness (ICD-10 - R42) - Symptoms have overall improved since the hospital visit. Blood work and tests for flu, COVID, and RSV were negative in the ED - Continue monitoring symptoms. Ensure adequate hydration and nutrition. - Take Tylenol for pain relief. Take a warm bath for comfort. - No hives today. She does have a rash on her L arm that looks to me like she was scratching or rubbing the skin, potentially in her sleep as she does not recall - Follow-up with PCP next week. 09/23/2024 Nausea and vomiting, unspecified vomiting type (ICD-10 - R11.2) 10/22/2024 Nausea and vomiting, unspecified vomiting type (ICD-10 - R11.2) 11/09/2024 Anxiety (ICD-10 - F41.9) 01/12/2025 Nausea and vomiting, unspecified vomiting type (ICD-10 - R11.2) 06/21/2024 Strep pharyngitis (ICD-10 - J02.0) Advised patient of positive rapid strep test results. Patient to begin antibiotics. Discussed the importance of taking entire course of antibiotics and to change toothbrush after 24 hours. Patient advised to RTC for further evaluation if symptoms change, worsen, or persist. Patient verbalized understanding of and agreement to this plan. Asthenia, fatigue, and nausea. - Symptoms could be due to a variety of causes, including influenza-like illness, glycemic levels, or other underlying conditions. - Conduct a nasopharyngeal swab for SARS-CoV-2 and influenza. Monitor glycemic levels. Consider need for additional Zofran for nausea and vomiting. Sore throat - Patient reports intermittent sore throat, test for strep. - Suggested warm tea and honey or cough drops to soothe throat. Hyperglycemia. - Glycemic level measured at 137 mg/dL during visit, but patient reports higher readings at home. - Monitor glycemic levels. Continue metformin. Consider need for additional medication if glycemic levels remain high. 08/16/2024 Hyperlipidemia , unspecified (ICD-10 - E78.5) Stable; continue with monitoring 08/25/2024 Urticaria (ICD-10 - L50.9) Stable, not having symptoms now Continue with Fexofenadine Add Montelukast, Famotidine Allergy referral If return, patient to let me know 10/05/2024 Nausea (ICD-10 - R11.0) - Symptoms have overall improved since the hospital visit. Blood work and tests for flu, COVID, and RSV were negative in the ED - Continue monitoring symptoms. Ensure adequate hydration and nutrition. - Take Tylenol for pain relief. Take a warm bath for comfort. - No hives today. She does have a rash on her L arm that looks to me like she was scratching or rubbing the skin, potentially in her sleep as she does not recall - Follow-up with PCP next week. 09/23/2024 Anxiety (ICD-10 - F41.9) 08/16/2024 Diabetes mellitus (ICD-10 - E11.9) Coniinue Dapiglofizin - have been in the 150 range per patient 08/25/2024 Type 2 diabetes mellitus without complication, without long-term current use of insulin (ICD-10 - E11.9) Patient would like to increase dapiglifozin to 10mg, will increase for patient 08/16/2024 Major depressive disorder, recurrent episode with anxious distress (ICD-10 - F33.9) The patient is stable; they are not having suicidal ideation and can contract for safety. They are forward thinking. The paitent will continue on their current medications. We discussed therapy. If anything changes, the patient will let me know immediately. 08/16/2024 Screening examination for STI (ICD-10 - Z11.3) 08/16/2024 Urticaria (ICD-10 - L50.9) ? etiology Allergy appt - patient already has continue on current meds If happens again, patient to let me know RAST testing 08/16/2024 Screening mammogram for breast cancer (ICD-10 - Z12.31) 10/05/2024 Other A total of 15 minutes was spent with patient and reviewing ED records, all on date of visit. - Symptoms have overall improved since the hospital visit. Blood work and tests for flu, COVID, and RSV were negative in the ED - Continue monitoring symptoms. Ensure adequate hydration and nutrition. - Take Tylenol for pain relief. Take a warm bath for comfort. - No hives today. She does have a rash on her L arm that looks to me like she was scratching or rubbing the skin, potentially in her sleep as she does not recall - Follow-up with PCP next week. Plan Of Treatment Pending Test Test Name Order Date METABOLIC PANEL COMPREHENSIVE 08/16/2024 HbA1C 08/16/2024 HIV 08/16/2024 MAMMO, ([facility]) SCREEN BILAT.DIGITAL 2024 Allergy Food Panel 11937 08/16/2024 RPR (MONITOR) W/REFL TITER 08/16/2024 ALLERGY MOLD PROFILE 08/16/2024 Insurance Providers Payer Name Payer Address Payer Phone Subscriber Number Group Number Insured Name Patient Relationship to Insured Coverage Start Date Coverage End Date [employer] [place] [employer] [address] [place] [address] [id number] Madhu Zimmerman Self - patient is the insured 9 D-[employer] [address] [place], [place] [id number] Madhu Zimmerman Self - patient is the insured [facility]-DO NOT DELETE/NOT FOR BILLING [address] [address] [place] [address] [facility] Madhu Zimmerman Self - patient is the insured 1 5 Medical (General) History Medical History History ICD Code Anxiety, depression tobacco use DEIRDRE 2012, ovaries remain Developmental delay Anxiety associated with depression DMII (NIDDM), new diagnosis 05/2017: Retinal imaging WNL 12/2017: Colonoscopy WNL repeat 10 years; EGD with 5cm hiatal hernia 12/2018: Mammo with small rig ht breast cystic lesion on US, 6 mo repeat c/w benign cyst; 10/2020 Mammo WNL JENNA - Light - NHP NHP Complex HighRisk 3 10/2020: Echo WNL, stress test WNL 01/2021: EGD - small hiatal hernia Surgical History Surgery Date(Month/Year) Tonsillectomy and adenoidetomy [address] in [address] 2011 tubal ligation 2003 Hospitalization History Reason Date(Month/Year) Hysstrectomy 2011
[2025-06-04 10:31] LABS: Appearance Urine Clear; Glucose Urine UA Negative (Negative); PH 6.0 (5.0-9.0); Specific Gravity - Urine 1.010 (1.005-1.025)
--- NOTE | 2025-06-04 11:10 | ED.FEMALEGU ---
HPI - Female Genitourinary General Chief complaint: Urogenital-Female Stated complaint: vaginal pain/cyst? Time Seen by Provider: 06/04/25 11:09 Source: patient Mode of arrival: ambulatory Limitations: no limitations History of Present Illness ED Provider: HPI Narrative: 49-year-old woman presenting with whitish discharge and right vaginal lump over the labia majora. It is nondraining, no fevers, subjective chills. Vaginal areas irritated. Has never had this before. No concern for or STI Related Data Previous Rx's ?Medication ?Instructions ?Recorded clindamycin HCl 300 mg capsule 300 mg PO TID 7 days #21 caps 06/04/25 (Cleocin HCl) ibuprofen 400 mg tablet 400 mg PO Q6H PRN pain 5 days #20 06/04/25 tabs metronidazole 0.75 % (37.5 mg/5 1 appful vaginal DAILY 5 days #70 06/04/25 gram) vaginal gel (Vandazole) grams Allergies Allergy/AdvReac Type Severity Reaction Status Date / Time amoxicillin Allergy Hives Verified 06/04/25 09:12 Review of Systems Constitutional: Constitutional: Reports as per [facility] Social History Social History Advance Directives: No Advance Directives Information Provided: Yes Physical Exam Exam: Exam: Patient examined with international student advisor in the room Alert and oriented x4 Abdominal exam is benign nontender nondistended Vaginal area with no evidence to suspect her herpes, no lesions, there is scanty whitish vaginal discharge without any bleeding, bimanual pelvic was not performed There were no obvious cysts or abscesses, over the right labia majora there maybe a very early either cyst type or small abscess that is forming Vital Signs: Vital Signs: Last Vital Signs Temp 98.0 F 06/04/25 11:54 Pulse 75 06/04/25 11:54 Resp 16 06/04/25 11:54 BP 127/67 06/04/25 11:54 Pulse Ox 96 06/04/25 11:54 O2 Del Method Room Air 06/04/25 11:54 BMI result Body Mass Index 31.6 Medical Decision Making Medical Decision Making MDM Narrative: 12:28 PM 06/04/2025 (Dr. Michael Griffin): No evidence for HPV, herpes, Bartholin cyst, no concern for STI, no concern for , exam is consistent with early cyst or abscess as well as vaginal whitish discharge, recommend warm compresses, we will start her on antibiotics, vaginal suppositories for BV, and re-presented to the ER if the area becomes larger I may need to be drained but nothing to drain at this time the area is barely palpable Differential Diagnosis Differential Diagnoses: The differential diagnosis associated with the presentation includes (See above) Lab Data MDM Lab Attestation statement: I reviewed the patient's lab results. Labs: Lab Results 06/04/25 Range/Units 09:34 Urine Color Yellow Urine Appearance Clear Urine pH 6.0 (5.0-9.0) Ur Specific [place] 1.010 (1.005-1.025) Urine Protein Negative (Neg-Trace) mg/dL Urine Glucose (UA) Negative (Negative) mg/dL Urine Ketones Negative (Negative) mg/dL Urine Blood Negative (Negative) Urine Nitrite Negative (Negative) Ur Leukocyte Esterase Negative (Negative) Urine RBC 0-2 (0-2) /HPF Urine WBC 0-5 (0-5) /HPF Ur Squamous Epith Cells 0-2 (0-2) /HPF Urine Bacteria Trace (None Seen) Hyaline Casts 0-2 (0-2) /LPF Prescription Management I considered prescription management with: Pain Medication and Antibiotic Discharge Plan Discharge Clinical Impression: Bacterial vaginosis, Cyst of vagina Patient Disposition: Home, Self-Care Additional Instructions: There was some whitish vaginal discharge that is likely consistent with bacterial vaginosis I am starting you on metronidazole gel 1 application before bedtime for the next 5 days, there was also either cyst or early abscess in the right labia majora, I recommend warm compresses, ibuprofen every 6 hours as prescribed as needed for pain, and start taking antibiotic, if the area gets worse more swollen come back at that point potentially be ready for incision but right now it is a small area of inflammation that nothing to incise and there was no drainage and it is barely palpable any other issues concerns come back to the ER. Prescriptions: New metronidazole [Vandazole] 0.75 % (37.5mg/5 gram) gel 1 appful vaginal DAILY 5 Days Qty: 70 0RF clindamycin HCl [Cleocin HCl] 300 mg capsule 300 mg PO TID 7 Days Qty: 21 0RF ibuprofen 400 mg tablet 400 mg PO Q6H PRN (Reason: pain) 5 Days Qty: 20 0RF Interventions: ED Discharge Assessment Last Done: 06/04/25 11:54 Discharge Date/Time: 06/04/25 11:56 Print Language: Ukrainian
[2025-06-04 11:54] VITALS: BP 127/67; PULSE 75; RESP 16; TEMP 36.7; O2SAT 96
== END 2025-06-04 11:56 | disposition home or self-care (01) ==
PROVIDERS: Emergency Provider Emergency Medicine
DX: N89.8 Other specified noninflammatory disorders of vagina (principal)
CPT/HCPCS: 81001; 99282; 99283

== ENCOUNTER 2025-06-21 11:59 | Emergency (ER) | payer MEDICAID, SELFPAY ==
--- OUTSIDE RECORDS SUMMARY | 2024-08-25 05:20 | XMS_ITS ---
Author Organization [employer] enter Address [address] [place] [phone] Care Team Providers Care Computer Typesetter Name Role Phone Fito Garza MD Primary Care Provider Adelfo MONTGOMERY, Maya Unavailable [phone] REASON FOR VISIT ride needed to[facility] Encounters Encounter Location Date Provider Diagnosis [facility] Medical [address] [id number] 08/25/2024 Maya Emanuel Plan Of Treatment No Information Progress Notes * Mikaela JORGEOB:[birth year] (49 yo F)Acc No.[id number]:08/25/2024 PROGRESS NOTES Patient: Madhu INMAN Provider: Marcia Emanuel MD Resource:Transportation, [facility] :1975 A ge:48 Y S ex:Female Date:08/25/2024 Address:[address] [place] [address], [address], [id number] Pcp:Fito Garza MD Subjective: * Chief Complaints: * 1 . ride needed to[facility]. * Medical History: Objective: * Vitals: * Physical Examination: Assessment: Plan: * Treatment: * Billing Information: * Visit Code: * Procedure Codes: * The named appointment provid er may or may not be the originator of this progress note, and it is not deemed complete until electronically signed by the appointment provider. Sign off status: Pending * Provider: Marcia Emanuel MD Date: 08/25/2024 Generated for Samantha sanders/Lisette/Denise on: 1 08/22/2024 02:05 AM EST
--- OUTSIDE RECORDS SUMMARY | 2024-09-27 05:40 | XMS_ITS ---
Author Organization [employer] enter Address [address] [place] [phone] Care Team Providers Care Records Management Director Name Role Phone Fito Garza MD Primary Care Provider [phone] REASON FOR VISIT Follow-Up/Recheck- CXL by facility Encounters Encounter Location Date Provider Diagnosis [facility] Medical of [address] [id number] 09/27/2024 Fito Garza Plan Of Treatment No Information Progress Notes * LUISITOEdilbertoHunterOB:[birth year] (49 yo F)Acc No.[id number]:09/27/2024 PROGRESS NOTES Patient: Madhu INMAN Provider: Enmanuel Garza MD :1975 A ge:48 Y S ex:Female Date:09/27/2024 Address:[address] [place] [address], [address], [id number] Subjective: * Chief Complaints: * 1 . [...] 09/27/2024 Generated for Samantha sanders/Lisette/eTransmitting on: 1 08/22/2024 02:04 AM EST
--- OUTSIDE RECORDS SUMMARY | 2024-10-27 03:00 | XMS_ITS ---
Author Organization [employer] enter Address [address] [place] [phone] Care Team Providers Care Genetic Technologist Name Role Phone Fito Garza MD Primary Care Provider REASON FOR VISIT Back Pain Encounters Encounter Location Date Provider Diagnosis [facility] Medical [address] [place] [phone] 10/27/2024 Fito Garza Plan Of Treatment No Information Progress Notes * LUISITOEdilbertoHunterOB:[birth year] (49 yo F)Acc No.[id number]:10/27/2024 PROGRESS NOTES Patient: Madhu INMAN Provider: Enmanuel Garza MD :1975 A ge:48 Y S ex:Female Date:10/27/2024 Address:[address] [place] [address], [address], [id number] Subjective: * Chief Complaints: * 1 . Back Pain. * Medical History: Objective: * Vitals: * Physical Examination: Assessment: Plan: * Treatment: * Billing Information: * Visit Code: * Procedure Codes: * The named appointment provid er may or may not be the originator of this progress note, and it is not deemed complete until electronically signed by the appointment provider. Sign off status: Pending * Provider: Enmanuel Garza MD Date: 0 10/27/2024 Generated for Samantha sanders/Lisette/eTransmitting on: 08/22/2024 02:04 AM EST
--- OUTSIDE RECORDS SUMMARY | 2024-12-15 03:40 | XMS_ITS ---
Author Organization [employer] enter Address [address] [place] [phone] Care Team Providers Care Licensed Direct Entry Midwife Name Role Phone Fito Garza MD Primary Care Provider REASON FOR VISIT Back Pain Encounters Encounter Location Date Provider Diagnosis [address] [id number] 12/15/2024 Fito Garza Plan Of Treatment No Information Progress Notes * LUISITOMikaelaOB:[birth year] (49 yo F)Acc No.[id number]:12/15/2024 PROGRESS NOTES Patient: Madhu INMAN Provider: Enmanuel Garza MD :1975 A ge:49 Y S ex:Female Date:12/15/2024 Address:[address] [place] [address], [address], [id number] Subjective: * Chief Complaints: * 1 . [...] * Provider: Enmanuel Garza MD Date: 0 12/15/2024 Generated for Samantha sanders/Lisette/eTransmitting on: 08/22/2024 02:07 AM EST
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
--- NOTE | 2025-06-21 12:06 | ECG_ITS ---
Test Reason : CP Blood Pressure : */* mmHG Vent. Rate : 74 BPM Atrial Rate : 74 BPM P-R Int : 164 ms QRS Dur : 84 ms QT Int : 408 ms P-R-T Axes : 30 -14 3 degrees QTcB Int : 452 ms Normal sinus rhythm Minimal voltage criteria for LVH, may be normal variant ( R in aVL ) Nonspecific T wave abnormality Abnormal ECG No previous ECGs available Referred By: Generic ED Physician Electronically Signed By: BRIAN PEÑA
[2025-06-21 12:30] VITALS: BP 156/74; PULSE 89; RESP 20; TEMP 36; O2SAT 98; BMI 31.3
--- NOTE | 2025-06-21 12:30 | ED_ITS ---
HPI - General Adult General Chief complaint: Syncope Stated complaint: passed out at dentist, cp's Time Seen by Provider: 06/21/25 13:50 Source: patient Mode of arrival: ambulatory Limitations: no limitations History of Present Illness ED Provider: VICKIE HYDE PA-C HPI narrative: 49 year old female with pmhx of anxiety, depression, and IDDM presents today after she had a syncopal episode at the dentist [employer]GAL STENO[employer]HER. States that her mouth was numbed, she got laughing gas and passed out while laying in the exam chair. Is unsure of how long she was using the laughing gas for, and is unsure of how long she was unconscious. She woke up to a sternal rub. Glucose was checked in the office after the syncopal event and was reported to be 116. Denies hitting her head or other trauma. She did not fall off of the exam chair. Does also complain of a pounding headache with light sensitivity, constant since the syncopal event. Denies current dizziness, lightheadedness, chest pain, shortness of breath, blurry vision, double vision, or neck/back pain. Reports chest wall pain associated with the sternal rub. Denies hx seizures. Related Data Previous Rx's ?Medication ?Instructions ?Recorded clindamycin HCl 300 mg capsule 300 mg PO TID 7 days #2 1 caps 06/04/25 (Cleocin HCl) ibuprofen 400 mg tablet 400 mg PO Q6H PRN pain 5 day s #20 06/04/25 tabs metronidazole 0.75 % (37.5 mg/5 1 appful vaginal DAILY 5 days #70 06/04/25 gram) vaginal gel (Vandazole) grams Allergies Allergy/AdvReac Type Severity Reaction Status Date / Time amoxicillin Allergy Hives Verified 06/21/25 12:31 Review of Systems 2 Review of Systems: Yes all other systems are reviewed and are negative PMFSH Past Medical History Attestation statement: The following information was validated with the patient. Source: old records reviewed and nursing notes reviewed Social History Social History Advance Directives: No Advance Directives Information Provided: Yes Physical Exam ED Vital Signs: Vital Signs - 24 hr 06/21/25 12:30 06/21/25 13:54 06/21/25 13:54 Temperature 96.8 F Pulse Rate 89 66 71 Respiratory Rate 20 Blood Pressure 156/74 H 108/67 111/66 Pulse Oximetry 98 Oxygen Delivery Method Room Air 06/21/25 13:54 06/21/25 13:56 Temperature 98.7 F Pulse Rate 84 Respiratory Rate Blood Pressure 119/76 Pulse Oximetry 98 Oxygen Delivery Method Room Air BMI result Body Mass Index 31.3 hypertensive, vitals are otherwise wnl General: Well appearing, in no acute distress. Skin: Warm, dry, intact. No rashes or lesions. Head: Normocephalic, atraumatic. EENT: Hearing is intact b/l. Conjunctiva clear. Sclera is anicteric. PERRLA. EOM intact. Moist mucous membranes.? Cardiac: Chest wall symmetric. RRR Lungs: Normal respiratory effort without accessory muscle use. CTA bilaterally Abdomen: Soft, non-tender, non-distended. No rebound tenderness or guarding. Positive BS x4. Back: No midline spinous or paraspinal tenderness. No step off deformity. Ext: Upper and lower extremities atraumatic, without tenderness, deformity, swelling or erythema Neuro: AOx3. Normal speech. NIH 0. trength 5/5 intact throughout. No saddle anesthesia. Sensation intact to light touch. NV intact distally. Ambulating with steady gait. Course Course Course Narrative: This is a Rapid Medical Exam performed in triage by Estrella Wynn PA-C. Full HPI, ROS and PE to be performed by primary ED provider. 49 yo F presenting to the ED c/o syncopal episode while at dentist [employer]GAL STENOGR[employer]HER - was there for dental extraction - states recieved the local numbing & laughing gas & then syncopized. States she was sternal rubbed. Now c/o headache & chest pain. Denies head trauma/fall or seizure activity PE: NAD, nontoxic appearing, ambulating w/steady gait Plan: EKG, labs Reevaluation(s) Reevaluation #1: CBC without leukocytosis or left shift. no anemia, h&h stable. chemistry without acute electrolyte abnormality requiring intervention. no padmini. liver function wnl. trop wnl. EKG showing normal sinus rhythm, rate of 74 beats per minute, no acute ischemic changes or ST elevations. > ct head pending > medicated with Toradol Reglan, Benadryl 1518 -- CT head unremarkable. Reports headache resolution with migraine cocktail. Anxious for discharge home. Patient has remained stable throughout ED visit today. Discussed worrisome signs and symptoms and when to return to the ED. All questions answered at this time. Patient is agreeable with disposition and stable for discharge. Medications Administered Discontinued Medications Generic Name Dose Route Start Last Admin Trade Name Julius PRN Reason Stop Dose Admin Diphenhydramine HCl 25 mg 06/21/25 14:18 06/21/25 14:38 Diphenhydramine Hcl 50 Mg/Ml Vial IVPUSH 06/21/25 14:19 25 mg ONCE ONE Administration Ketorolac Tromethamine 30 mg 06/21/25 14:18 06/21/25 14:39 Ketorolac Tromethamine 30 Mg/Ml Vial IVPUSH 06/21/25 14:19 30 mg ONCE ONE Administration Metoclopramide HCl 10 mg 06/21/25 14:18 06/21/25 14:38 Metoclopramide Hcl 10 Mg/2 Ml Vial IVPUSH 06/21/25 14:19 10 mg ONCE ONE Administration Medical Decision Making Medical Decision Making [facility] Narrative: 49 year old female with pmhx of anxiety, depression, and IDDM presents today after she had a syncopal episode at the dentist [employer]. hypertensive, vitals are otherwise wnl. exam nonfocal. Differential diagnosis includes anemia, electrolyte abnormality, vasovagal syncope, medication adverse, tension headache, migraine, arrhythmia. Unlikely ACS, PE, seizure. Plan for labs, ekg, trop, imaging, re-evaluation. Differential Diagnosis Differential Diagnoses: The differential diagnosis associated with the presentation includes as above. Admission/Observation not indicated. Lab Data [facility] Lab Attestation statement: I reviewed the patient's lab results. as above. 06/21/25 12:52 06/21/25 12:52 Labs: Lab Results 06/21/25 Range/Units 12:52 WBC 10.3 (4.8-10.8) X10*3/uL RBC 4.89 (4.20-5.50) X10*6/uL Hgb 14.5 (12.0-16.0) g/dl Hct 44.6 (37.0-47.0) % MCV 91.2 (80.0-98.0) fL MCH 29.7 (27.0-33.0) pg MCHC 32.5 (31.0-35.0) g/dl RDW 13.0 (11.0-16.0) % Plt Count 279 (160-400) X10*3/uL MPV 10.5 (9.4-12.3) fL Immature Gran % (Auto) 0.7 H (0.0-0.4) % Neut % (Auto) 66.4 (45-73) % Lymph % (Auto) 24.2 (20-40) % [place] % (Auto) 6.3 (2-11) % Eos % (Auto) 1.8 (0-4) % Baso % (Auto) 0.6 (0-2) % Lymph # (Auto) 2.5 (1.2-4.9) X10*3/uL [place] # (Auto) 0.7 (0.1-1.2) X10*3/uL Eos # (Auto) 0.2 (0.0-0.4) X10*3/uL Baso # (Auto) 0.1 (0.0-0.2) X10*3/uL Abs Immat Gran (auto) 0.07 H (0.00-0.03) X10*3/uL Absolute Neuts (auto) 6.8 (2.0-8.3) x10*3/uL Absolute Nucleated RBC 0.000 (0.0-0.012) X10*3/uL Nucleated RBC % (auto) 0.0 (0.0-0.2) /100WBC Sodium 138 (135-145) mmol/L Potassium 4.1 (3.3-5.1) mmol/L Chloride 106 (96-108) mmol/L Carbon Dioxide 25 (22-29) mmol/L Anion Gap 11 L (12-20) BUN 8 L (9-16) mg/dL Creatinine 0.70 (0.5-1.4) mg/dL Estim Creat Clear Calc 109.8 Estimated GFR > 60 Random Glucose 114 (60-115) mg/dL Calcium 9.2 D (8.4-10.2) mg/dL Magnesium 2.0 (1.6-2.6) mg/dL Total Bilirubin 0.4 (0.0-1.0) mg/dL Direct Bilirubin 0.1 (0.0-0.5) mg/dL AST 22 (5-31) U/L ALT 15 (0-31) U/L Alkaline Phosphatase 96 (39-117) U/L Troponin I High Sens < 2.7 (<3.5-17.0) ng/L Total Protein 7.9 (6.5-8.0) g/dL Albumin 4.6 (3.5-5.0) g/dL Independent Interpretation I performed an independent interpretation of an: EKG and CT Scan Interpretation: ct head without bleed ekg showing normal sinus rhythm, rate of 75 beats per minute, QT 408, QTC 452, no acute ischemic changes or ST elevations Radiology Impression Discussion of test interpretation with radiology: I have reviewed the radiologist's reading. Radiologist Impression: Procedure(s): CT head/brain wo IV con Accession Number(s): [id number] cc: Physician,Unknown ; Vickie Hyde~ Report Number: [id number]: Total DLP = 668.00 mGy-cm Reason for Exam: LOPEZ and syncope, sp laughign gas EXAMINATION: CT HEAD WITHOUT CONTRAST CLINICAL INFORMATION: Headache and syncope after laughing gas. COMPARISON: None available. TECHNIQUE: Contiguous axial imaging was performed from the skull base to vertex without intravenous administration of contrast. This CT examination was performed using dose optimization techniques as appropriate, variously including the following: *Automated exposure control *Adjustment of mA and/or kV according to patient size (this includes techniques or standardized protocols for targeted exams where dose is matched to indication/reason for exam; i.e. extremities or head) *Use of iterative reconstruction technique FINDINGS: There is no evidence of intracranial hemorrhage or extra-axial fluid collection. There is no mass effect, or edema. No CT evidence of acute territorial infarct. Ventricles, sulci, and cisterns are normal in size and configuration for patient age. No hydrocephalus. No midline shift. Negative hyperdense MCA sign. Negative insular ribbon sign. Patchy periventricular and deep white matter hypoattenuation is consistent with mild to moderate small vessel ischemic changes. Normal pituitary. Mild atheromatous calcification of the bilateral carotid siphons and V4 segments vertebral arteries bilaterally. Globes and orbital contents image normally. No extracranial soft tissue abnormalities. There is an air-fluid level in the left maxillary sinus. Remainder of the paranasal sinuses, mastoid air cells, and tympanic cavities are normally aerated. No suspicious bony abnormalities. There are no acute fractures evident. CT/CT head/brain wo IV con IMPRESSION: 1. No acute intracranial abnormality. 2. Air-fluid level left maxillary sinus. Findings could represent acute sinusitis in the appropriate clinical setting. External Record Review External record reviewed: Inpatient record Prescription Management I considered prescription management with: Pain Medication Social Determinants Patient?s care significantly limited by Social Determinants of Health including: Other Social Determinant of Health Critical Care Time Critical Care Time Critical Care Time: No Discharge Plan Discharge Clinical Impression: Syncope Patient Disposition: Home, Self-Care Instructions: Syncope (ED) Additional Instructions: You were evaluated in the ED today following a suspected syncopal episode at the dentist today. Your workup is reassuring. Your headache improved with medications today. You may continue Tylenol and Motrin at home as needed. Follow up with your primary care provider. Return with any new or worsening symptoms. In the case of an emergency call 911. Prescriptions: No Action metronidazole [Vandazole] 0.75 % (37.5mg/5 gram) gel 1 appful vaginal DAILY 5 Days Qty: 70 0RF clindamycin HCl [Cleocin HCl] 300 mg capsule 300 mg PO TID 7 Days Qty: 21 0RF ibuprofen 400 mg tablet 400 mg PO Q6H PRN (Reason: pain) 5 Days Qty: 20 0RF Referrals: Physician,Unknown J [Primary Care Provider, Medical] Print Language: Pashto
[2025-06-21 13:13] LABS: MANUAL DIFF FLAG NO
[2025-06-21 13:17] LABS: Hematocrit 44.6 % (37.0-47.0); Hemoglobin 14.5 g/dl (12.0-16.0); Imm Gran Abs Auto 0.07 X10*3/uL (0.00-0.03); Imm Gran Pct Auto 0.7 % (0.0-0.4); Lymphocytes Absolute Auto 2.5 X10*3/uL (1.2-4.9); Mean Corpuscular HGB Conc 32.5 g/dl (31.0-35.0); Mean Corpuscular Hemoglobin 29.7 pg (27.0-33.0); Mean Corpuscular Volume 91.2 fL (80.0-98.0); NRBC Abs Auto 0.000 X10*3/uL (0.0-0.012); NRBC Pct Auto 0.0 /100WBC (0.0-0.2); Platelet Count 279 X10*3/uL (160-400); Red Blood Count 4.89 X10*6/uL (4.20-5.50); White Blood Count 10.3 X10*3/uL (4.8-10.8)
[2025-06-21 13:39] LABS: Alanine Aminotransferase 15 U/L (0-31); Albumin Level 4.6 g/dL (3.5-5.0); Alkaline Phosphatase 96 U/L (39-117); Anion Gap 11 (12-20); Aspartate Amino Transferase 22 U/L (5-31); Blood Urea Nitrogen 8 mg/dL (9-16); Calcium 9.2 mg/dL (8.4-10.2); Carbon Dioxide 25 mmol/L (22-29); Chloride 106 mmol/L (96-108); Creatinine Clr Calc Pharmacy 109.8; Estimated Glomerular Filt Rate > 60; Magnesium 2.0 mg/dL (1.6-2.6); Potassium 4.1 mmol/L (3.3-5.1); Sodium 138 mmol/L (135-145); Total Protein 7.9 g/dL (6.5-8.0)
[2025-06-21 13:41] LABS: Troponin-I High Sensitivity < 2.7 ng/L (<3.5-17.0)
[2025-06-21 13:54] VITALS: BP 108/67; BP 111/66; BP 119/76; PULSE 66; PULSE 71; PULSE 84
[2025-06-21 13:56] VITALS: TEMP 37.1; O2SAT 98
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
[2025-06-21 15:39] VITALS: BP 119/76; PULSE 84; RESP 18; TEMP 37.1; O2SAT 98
--- OUTSIDE RECORDS SUMMARY | 2025-06-22 02:05 | XMS_ITS | Patient Health Record ---
Author Organization [employer] Address [address] [place] [id number] Care Team Providers Care Inspector Balance Truing Name Role Phone Fito Garza MD Primary Care Provider [phone] Adelfo MONTGOMERY, Maya Unavailable [phone] Del Rosario TAILOR HELPER-C, Avani Unavailable [phone] Sierra Sanders APRN Unavailable Elle Diaz DO Unavailable [phone] Krishan Mckeon MD Unavailable [phone] Allergies Allergen (clinical drug ingredient) Drug/Non Drug Allergy documented on EMR Reaction Allergy Type Onset Date Status Shellfish Hives Drug Allergy Active cephalexin cephalexin Anaphylaxis Drug Allergy Act krystle amoxicillin amoxicillin hives Drug Allergy Act krystle Results Component Value Reference Range Notes HEPATITIS C ANTIBODY Reviewed date:08/17/2024 05:10:37 AM Interpretation: Performing Lab:[facility] [address] [facility] /[id number] Notes/Report: Hepatitis C Virus Antibody Non Reac Non Reactive Urine Gonorrhoea Probe (Life span) Reviewed date:08/17/2024 03:27:46 PM Interpretation: Performing Lab:[facility] [place] [address] [facility] /[id number] Notes/Report: Urine Gonorrhoeae Probe negative Urine Juni Probe performed by [facility] Test Performed by: [facility] [address] [address] LIPID PANEL (aka Cholesterol Fractionation) Reviewed date:08/17/2024 05:10:37 AM Interpretation: Performing Lab:[facility] [address] [facility] /[address] Notes/Report: Hours Fasting Unknown Cholesterol Level 225 [...] Probe Reviewed date:08/17/2024 03:27:46 PM Interpretation: Performing Lab:[facility] [address] [facility] /[id number] Notes/Report: Urine Chlamydia Probe negative Urine Chlamydia Probe performed by [facility] Test Performed by: [facility] [address] [address] Comprehensive Metabolic Pane l Reviewed date:09/14/2024 08:36:02 AM Interpretation: Performing Lab:[facility] [address] [place] [address] /[address] Notes/Report: Glucose 116 67-99 MG/DL BUN 8 [...] Combo Reviewed date:08/17/2024 05:10:37 AM Interpretation: Performing Lab:[facility] [address] [facility] /[address] Notes/Report: HIV Ab/Ag Combo Non Reac Treponema pallidum IgG and I gM Antibody Reviewed date:08/17/2024 05:10:37 AM Interpretation: Performing Lab:[facility] [address] [facility] /[address] Notes/Report: Treponema pallidum IgG IgM Antibody <0.2 [...] Profile Reviewed date:08/18/2024 07:52:39 AM Interpretation: Performing Lab:[facility] [address] [facility] /[address] Notes/Report: Allergen, A. alternata IgE <0.10 <=0.34 [...] clinical allergy or even anaphylaxis. Performed By: [facility] [address] [place] [address] Evaluator: Mando Rausch MD, PhD CLIA Number: [id number] Allergen, Food, Adult Profil e Reviewed date:08/18/2024 07:52:39 AM Interpretation: Performing Lab:[facility] [place] [address] [place] [address] Notes/Report: Allergen,Egg White <0.10 <=0.34 kU/L Allergen, Milk (Cow's) <0.10 <=0.34 kU/L Allergen, Food, Wheat IgE <0.10 <=0.34 kU/L Allergen, Food, [place] IgE <0.10 <=0.34 kU/L Allergen,Peanut <0.10 <=0.34 kU/L Allergen, Soybean <0.10 <=0.34 kU/L Allergen, Food, Shrimp IgE <0.10 <=0.34 kU/L Allergen, [place] IgE <0.10 <=0.34 kU/L Allergen, Food, Clam IgE <0.10 <=0.34 kU/L Allergen, Food, Codfish IgE <0.10 <=0.34 kU/L Allergen, Food, Scallop IgE <0.10 <=0.34 kU/L Immunoglobulin E 66 <=214 kU/L REFERENCE INTERVAL: Immunoglobulin E, Serum Access complete set of age- and/or gender-specific reference intervals for this test in the [facility] Test Directory (mPortal). Comprehensive Metabolic Pane l Reviewed date:08/17/2024 05:10:37 AM Interpretation: Performing Lab:[facility] [address] [facility] [address] Notes/Report: Glucose 213 67-99 MG/DL BUN 7 [...] A1C Reviewed date:08/17/2024 05:10:37 AM Interpretation: Performing Lab:[facility] [address] [facility] 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 Diagnosis 1 Urticaria (L50.9) Referral Organization [facility] Referring Provider First Name Elle Referring Provider Last Name Emily Referring Provider Speciality Family Pra ctice Referred Provider Laron Obregon ([facility]) Referred Provider Specialty Allergy/Immu nology General Notes [...] W/U Status Risk Notes Problem Tobacco dependence (86804123) Tobacco dependence (F17.200) Active confirmed Problem Diabetes mellitus (24013948) Diabetes mellitus (E11.9) Active confirmed Problem No diagnosis (248328789) Enhanced Care Level 5 (CareLevel) Active confirmed Problem Insomnia disorder related to another mental disorder (04038653) Insomnia due to other mental disorder (F51.05) Active confirmed Problem Sciatica (63528516) Lumbago with sciatica, left side (M54.42) Active confirmed Problem Sciatica (07538810) Lumbago with sciatica, right side (M54.41) Active confirmed Problem Left side sciatica (889774964549929) Sciatica, left side (M54.32) Active confirmed Problem Right side sciatica (096951940849834) Sciatica, right side (M54.31) Active confirmed Problem Hyperlipidemia (19518464) Hyperlipidemia , unspecified (E78.5) Active confirmed Problem Chronic pain (31211225) Other chronic pain (G89.29) Active confirmed Problem Leukemoid reaction (86775291) Leukemoid reaction (D72.823) Active confirmed Problem Vitamin D deficiency (52832603) Vitamin D deficiency (E55.9) Active confirmed Problem Anxiety (50938478) Anxiety (F41.9) Active confirmed Problem Kidney stone (05011721) Kidney stone (N20.0) Active confirmed Problem Obesity (468928279) Obesity (E66.9) Active confirmed Problem Recurrent major depression (93820866) Major depressive disorder, recurrent episode with anxious distress (F33.9) Active confirmed Problem Moderate recurrent major depression (95722415) Moderate episode of recurrent major depressive disorder (F33.1) Active confirmed Problem Type II diabetes mellitus without complication (036993362) Type 2 diabetes mellitus without complication, without long-term current use of insulin (E11.9) Active confirmed Problem Size Inclusive Health (SIH) Active confirmed Problem Gastroesophageal reflux disease with esophagitis (disorder) (016652579) Gastro-esophag eal reflux disease with esophagitis, without bleeding (K21.00) Active confirmed Vital Signs Oximetry 100 % 10/05/2024 Blood pressure diastolic 82 mm Hg 10/05/2024 Height 66 in 10/05/2024 Blood pressure systolic 126 mm Hg 10/05/2024 Weight 205 lbs 10/05/2024 BMI 33.08 kg/m2 10/05/2024 Encounters Encounter Location Date Provider Diagnosis [address] [id number] 07/05/2024 Fito Garza Anxiety F41.[address] [id number] 07/14/2024 Elle Diaz Urticaria L50.[address] [id number] 08/16/2024 Fito Garza Gastro-esophageal reflux disease with esophagitis, without bleeding K21.00 ; Tobacco dependence F17.200 ; Hyperlipidemia, unspecified E78.5 ; Diabetes mellitus E11.9 ; Major depressive disorder, recurrent episode with anxious distress F33.9 ; Screening examination for STI Z11.3 ; Urticaria L50.9 and Screening mammogram for breast cancer Z12.[address] [id number] 08/25/2024 Fito Garza Cough present for greater than 3 weeks R05.8 ; Urticaria L50.9 and Type 2 diabetes mellitus without complication, without long-term current use of insulin E11.[address] [id number] 09/13/2024 Avani Del Rosario Pneumonia of right lower lobe due to infectious organism J18.9 and Nausea and vomiting, unspecified vomiting type R11.[address] [id number] 10/05/2024 Sierranuris Cordovaube Dizziness R42 ; Hives L50.9 and Nausea R11.[address] [id number] 06/05/2025 Fito Garza [address] [id number] 06/22/2024 Fito Garza [address] [id number] 07/04/2024 Fito Garza [address], [place] [id number] 07/13/2024 Fito Garza [facility] [address] [place], [place] [id number] 07/13/2024 Fito Garza [facility] [address] [place], [place] [id number] 07/13/2024 Fito Garza [facility] [address] [place], [place] [id number] 08/04/2024 Fito Garza [facility] [address] [place], [place] [id number] 08/11/2024 Fito Garza [facility] [address] [place], [place] [id number] 08/15/2024 Fito Garza [facility] [address] [place], [place] [id number] 08/17/2024 Fito Garza [facility] [address] [place], [place] [id number] 08/17/2024 Fito Garza [facility] [address] [place], [place] [id number] 08/17/2024 Fito Garza [facility] [address] [place], [place] [id number] 08/19/2024 Fito Garza [facility] [address] [place], [place] [id number] 08/27/2024 Fito Garza [facility] [address] [place], [place] [id number] 09/05/2024 Fito Garza [facility] [address] [place], [place] [id number] 09/07/2024 Fito Garza [facility] [address] [place], [place] [id number] 09/23/2024 Fito Garza Nausea and vomiting, unspecified vomiting type R11.2 and Anxiety F41.9 [facility] [address] [place], [place] [id number] 10/03/2024 Fito Garza [facility] [address] [place], [place] [id number] 10/22/2024 Fito Garza Nausea and vomiting, unspecified vomiting type R11.2 [facility] [address] [place], [place] [id number] 11/09/2024 Fito Garza Anxiety F41.9 [facility] [address] [place], [place] [id number] 11/16/2024 Fito Garza [address], [place] [id number] 11/18/2024 Fito Greg [address], [place] [id number] 11/18/2024 Fito Greg [address], [place] [id number] 01/12/2025 Fito Garza Nausea and vomiting, unspecified vomiting type R11.[address], [place] [id number] 03/07/2025 Fito Greg [address], [place] [id number] 03/16/2025 Fito Greg [address], [place] [id number] 03/28/2025 Fito Garza [address], [place] [id number] 03/29/2025 Fito Garza [address], [place] [id number] 04/07/2025 Fito Garza [address], [place] [id number] 04/13/2025 Fito Garza Assessments Encounter Date Diagnosis (ICD Code) Assessment Notes Treatment Notes Treatment Clinical Notes Section Notes 07/05/2024 Anxiety (ICD-10 - F41.9) The patient [...] Singulair 10 mg daily -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 Stop zofran while using metoclopramide . Discussed avoiding triggers, and remedies such as aaliyah to decrease symptoms. Patient instructed to drink plenty of fluids , start slow by eating ice chips, popsiciles, sipping on mildly flavored water. Advance diet to clear liquids such as broth, teas, clear soups. Adanvce as tolerated. Monitor for signs of dehydration such as dizziness/weak ness, dry mucous membranes, increasing heart rate, decreasing urine output, poor skin turgor, or not being able to tolerate po fluids. Instructed to go to ED for any signs of dehydration for possible IV fluids. Patient verbalized understanding. General Weakness and Nausea - - Persistent [...] vomiting, unspecified vomiting type (ICD-10 - R11.2) 08/16/2024 Hyperlipidemia , unspecified (ICD-10 - E78.5) [...] ([facility]) SCREEN BILAT.DIGITAL 2024 Allergy Food Panel [id number] 08/16/2024 [facility] (MONITOR) W/REFL TITER 08/16/2024 ALLERGY MOLD PROFILE 08/16/2024 Insurance Providers Payer Name Payer Address Payer Phone Subscriber Number Group Number Insured Name Patient Relationship to Insured Coverage Start Date Coverage End Date MEDICAID [facility] Technology [address] [place] [id number] Madhu Zimmerman Self - patient is the insured 9 D-[employer]ICAID [employer] [address] [place] [id number] Madhu Zimmerman Self - patient is the insured AE NHP-DO NOT DELETE/NOT FOR BILLING [address] [address] [place] [address] AEALP Madhu Zimmerman Self - patient is the [...]
--- OUTSIDE RECORDS SUMMARY | 2025-06-22 02:05 | XMS_ITS | Clinical Summary ---
Author Organization [employer] Address [address] [facility] [address] [place] [address] Care Team Providers Care Wet End Helper Name Role Phone Unavailable Primary Care Provider [...] mg by mouth Once per day. Active nicotine (Nicoderm CQ) 14 MG/24HR patch Place 1 patch on the skin 1 (one) time each day at the same time. 42 patch 06/21/2025 08/02/20 25 Active nicotine (Nicoderm CQ) 7 MG/24HR patch Place 1 patch on the skin 1 (one) time each day at the same time. 14 patch 06/21/2025 07/21/20 25 Active nicotine polacrilex (Commit) 4 MG lozenge Dissolve 1 lozenge (4 mg) in the mouth every 2 (two) hours if needed for smoking cessation. 100 lozenge 06/21/2025 07/21/20 25 Active Hospital, Clinic, or Other Facility Administered Medication Ordered Dose Route Frequency Start Date End Date Status aspirin chewable tablet 81 mgIndications:Chest pain, unspecified type 81 mg PO Once 06/21/2025 Active aspirin chewable tablet 324 mgIndications:Chest pain, unspecified type 324 mg PO Once 06/21/2025 06/21/2025 Ended Active Problems Problem Noted Date Diagnosed Date Tobacco dependence 06/21/2025 Gastroenteritis 01/25/2025 Assessment & Plan (01/25/2025 7:44 [...] Encounters Date Type Department Care Team Description 06/21/2025 2:40 PM EST Office Visit [facility] [address] [place] [phone] Nicolas Escoto MD Syncope, unspecified syncope type (Primary Dx); Chest pain, unspecified type; Tobacco dependence 06/21/2025 Telephone [facility] [address] [place] [phone] Lm Lund, EBONY Nurse Triage 06/21/2025 Telephone [facility] [address] [place] [address] Lm Lund RN ED expect 06/21/2025 Travel 06/14/2025 Telephone [facility] [address] [place] [address] Benjamin Clay MD Appointment Request 04/05/2025 Population Health Risk Score [facility] () Department [address] [place] [id number] Provider, Population Health Generic from Last 3 Months Social History Tobacco [...] Pulse 81 06/21/2025 11:35 AM EST Temperature 36.7 C (98.1 F) 01/25/2025 6:24 PM EDT Respiratory Rate 17 06/21/2025 11:35 AM EST Oxygen Saturation 97% 06/21/2025 11:35 AM EST Inhaled Oxygen Concentration - - Weight 90.4 [...] Eye Exam 1986 Alcohol/Substance Use Screening 1988 Family Planning (PISQ) 12/11/1991 Hepatitis [...] 2006 Mammogram 2016 COVID-19 Vaccine (1 - 2024-2 6 season) 2025 Influenza Vaccine (#1) 2025 Diabetes: Hemoglobin A1C 07/27/2025 01/25/2025 Depression Screening 01/25/2026 01/25/2025, 01/25/2025 Tobacco Screening 06/21/2026 06/21/2025 Zoster Vaccines (1 of 2) 2026 RSV [...] on patient's age to complete this topic Goals Goal Patient Goal Type Associated Problems Recent Progress Patient-Stated? Author Help patients manage their type 2 diabetes Care Plan Help patients manage their type 2 diabetes No Sarah Coto Patient has chronic kidney disease Care Plan Patient has chronic kidney disease No Sarah Coto Patient has chronic kidney disease Care Plan Patient has chronic kidney disease Nicol Prasad RN Patient has chronic kidney disease Care Plan Patient has chronic kidney disease Lm Virk RN Patient has chronic kidney disease Care Plan Patient has chronic kidney disease No Lm Lund RN Procedures Procedure Name Priority Date/Time Associated Diagnosis Comments ECG 12-LEAD Routine 06/21/2025 4:32 PM EST Chest pain, unspecified type POCT GLYCATED HEMOGLOBIN, TOTAL Routine 01/25/2025 6:47 PM EDT Type 2 diabetes mellitus without complication, without long-term current use of insulin ([facility]) from Last 3 Months or [...] or Most Recently Relevant to Health Maintenance Additional Health Concerns Active Problems Noted Date Diagnosed Date Help patients manage their type 2 diabetes 06/14 Patient has chronic kidney disease 06/14/2025 Patient has chronic kidney disease 06/21/2025 Patient has chronic kidney disease 06/21/2025 Patient has chronic kidney disease 06/21/2025 [email or web address]
--- OUTSIDE RECORDS SUMMARY | 2025-06-22 02:05 | XMS_ITS | Encounter Summary ---
Author Organization [employer] Address [address] [facility] [address] [place] [address] Care Team Providers Care Coverage Specialist Name Role Phone Unavailable Primary Care Provider Unavailabl e Reason for Visit * Reason Onset Date Comments ED expect 06/21/2025 Encounter Details Date Type Department Care Team (Late st Contact Info) Description 06/21/2025 Telephone [facility] [address] [place] [address] Lm Lund RN ED expect Social History Tobacco Use Types Packs/Day Years Used Date Smoking Tobacco: Every Day Cigarettes Smokeless Tobacco: Never Depression Answer Date Recorded Patient Health Questionnaire-9 [...] PM EDT documented as of this encounter Miscellaneous Notes * Telephone Encounter - Lm Lund RN - 06/21/2025 11:45 AM EST TC placed to [facility] [phone] for ED expect. Patient c/o severe upper/mid sternal chest pain and+LOC while at the Dentist office today. RN gave verbal report to Jadyn GUY documented in this encounter Plan of Treatment Not on file documented as of this encounter Goals Goal [...] Lund RN documented as of this encounter Visit Diagnoses Not on filedocumented in this encounter Additional Health Concerns Active [...]
--- OUTSIDE RECORDS SUMMARY | 2025-06-22 02:05 | XMS_ITS | Encounter Summary ---
Author Organization [employer] Address [address] [facility] [address] [place] [address] Care Team Providers Care Clinical Care Manager Name Role Phone Unavailable Primary Care Provider Unavailabl e Encounter Details Date Type Department Care Team (Latest Contact Info) Description 06/21/2025 Travel Social History Tobacco Use Types Packs/Day Years [...] PM EDT documented as of this encounter Plan of Treatment Not on [...]
--- OUTSIDE RECORDS SUMMARY | 2025-06-22 02:05 | XMS_ITS | Encounter Summary ---
Author Organization [employer] Address [address] [facility] [address] [place] [address] Care Team Providers Care Mallet And Die Cutter Name Role Phone Unavailable Primary Care Provider Unavailabl e Reason for Visit * Reason Onset Date Comments Appointment Request 06/14/2025 Encounter Details Date Type Department Care Team (Late st Contact Info) Description 06/14/2025 Telephone [facility] [address] [place] [address] Benjamin Clay MD [address] [place] [address] Appointment Request Social History Tobacco Use Types Packs/Day Years [...] encounter Miscellaneous Notes * Telephone Encounter - Sarah Borden - 06/14/2025 10:49 AM EST TC from caller requesting NEW PATIENT visit . DX : Depression Anxiety Diabetes Medical Concern: N/a Insurance name : [facility] Location : [place] Demographic information updated documented in this encounter Plan of Treatment Not on file documented as of this encounter Goals Goal Patient Goal Type Associated Problems Recent Progress Patient-Stated? Author Help patients manage their type 2 diabetes Care Plan Help patients manage their type 2 diabetes No Sarah Coto Patient has chronic kidney disease Care Plan Patient has chronic kidney disease No Sarah Coto documented as of this encounter Visit Diagnoses Not on filedocumented in this encounter Additional Health Concerns Active Problems Noted Date Diagnosed Date Help patients manage their type 2 diabetes 06/14 Patient has chronic kidney disease 06/14/2025 Assessment Noted Time PHQ-9 Depression Total Score: 4 01/26/20 25 7:46 PM EDT documented as of this encounter
--- OUTSIDE RECORDS SUMMARY | 2025-06-22 02:05 | XMS_ITS | Encounter Summary ---
Author Organization [employer] Address [address] [facility] [address] [place] [address] Care Team Providers Care Telecine Operator Name Role Phone Unavailable Primary Care Provider Unavailabl e Reason for Visit * Reason Onset Date Comments Nurse Triage 06/21/2025 Encounter Details Date Type Department Care Team (Late st Contact Info) Description 06/21/2025 Telephone [facility] [address] [place] [address] Lm Lund, EBONY Nurse Triage Social History Tobacco Use Types Packs/Day Years [...] Encounter - Lm Lund RN - 06/21/2025 11:48 AM EST Assessment: Patient presents to [facility] c/o Severe upper and mid-sternal chest pain and + LOC while at the Dentist today.. Symptoms have been present for hours. Symptoms are constant. Patient is taking (treatment/meds) no medications. VS as follows (if applicable): HR 75 regular rate and rhythm Resp 20 none BP 117/83 right Arm; Device: Automatic Cuff Size: large O2 sat 98 % on room air Pain level: 10, Location: upper and mid chest Allergies[1] Current Medications[2] Patient Active Problem List Diagnosis Date Noted Tobacco dependence 06/21/2025 Gastroenteritis 01/25/2025 Type 2 diabetes mellitus without complication, without long-term current use of insulin (HCC) 01/25/2025 Body aches 01/25/2025 Recurrent major depressive disorder, in partial remission (CMS/HCC) 01/25/2025 In Office Testing EKG NSR Plan of care: Report to Dr. Escoto Provider evaluation: Yes Tx 325 mg ASA PO RN called in verbal report to [facility] at 1135am. Patient arriving by private car. Lm Lund RN [1] Allergies Allergen Reactions Penicillin G Hives [2] Current Outpatient Medications Medication Sig Dispense Refill hydrOXYzine HCl (Atarax) 25 MG tablet Take 25 mg by mouth Once per day. Ozempic, 0.25 or 0.5 MG/DOSE, 2 MG/3ML solution pen-injector Inject 0.25 mg under the skin 1 (one) time per week. Current Facility-Administered Medications Medication Dose Route Frequency Provider Last Rate Last Admin aspirin chewable tablet 81 mg 81 mg Oral Once Nicolas Escoto MD documented in this encounter Plan of Treatment [...]
== END 2025-06-21 15:40 | disposition home or self-care (01) ==
PROVIDERS: Physician Assistant; Emergency Provider Emergency Medicine
DX: R55 Syncope and collapse (principal); R07.9 Chest pain, unspecified; R51.9 Headache, unspecified; F41.9 Anxiety disorder, unspecified; E11.9 Type 2 diabetes mellitus without complications; Z79.4 Long term (current) use of insulin
CPT/HCPCS: 36415; 70450; 80048; 80076; 83735; 84484; 85025; 93005; 96374; 96375; 99284; J1200; J1885; J2765

== ENCOUNTER → 2025-06-21 12:06 | Outpatient (BNV) | payer MEDICAID, SELFPAY | PROVIDERS: Emergency Provider Emergency Medicine; Visit Provider Internal Medicine | DX: R94.31 Abnormal electrocardiogram [ECG] [EKG] (principal); R07.9 Chest pain, unspecified | CPT/HCPCS: 93010 ==

== ENCOUNTER → 2025-06-21 14:18 | Outpatient (BNV) | payer MEDICAID, SELFPAY | PROVIDERS: Emergency Provider Emergency Medicine; Visit Provider Radiology Diagnostic Radiology | DX: R51.9 Headache, unspecified (principal); R55 Syncope and collapse | CPT/HCPCS: 70450 ==